=== PATIENT | female | born 1985 | race Caucasian/White ===

== ENCOUNTER 2018-05-24 22:23 | Emergency (ER) | payer SELFPAY ==
[2018-05-24 22:25] VITALS: BP 154/91; PULSE 98; RESP 18; TEMP 36.7; O2SAT 92; BMI 35.3
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
--- NOTE | 2018-05-24 22:42 | RAD_ITS ---
STUDY: X-RAY - LEFT TIBIA AND FIBULA REASON FOR EXAM: Female, 33 years old. Fall TECHNIQUE: 2 view(s) of the tibia and fibula were obtained. COMPARISON: None. FINDINGS: Probable focal bony infarct of the proximal tibial shaft. Normal visualized fibula. The soft tissue structures are unremarkable. RAD/Tibia & Fibula 2 Views IMPRESSION: No acute bony injury of the tibia and fibula. Electronically Signed: Jacoby Amin DO at 22:59 EDT Tel [phone], Service support ,
[2018-05-24] MEDS: Naproxen 500 MG Tablet PO (22:44)
--- NOTE | 2018-05-24 23:14 | ED.DEP ---
ED Disposition - Plan for ED Patient: Instructions: ED Abrasion, ED Contusion Lower Ext Referrals: NOT,DEFINED [NON-STAFF] -
== END 2018-05-24 23:40 | disposition home or self-care (01) ==
LOC: ED 22:58
PROVIDERS: Emergency Provider Emergency Medicine; Family Provider Internal Medicine; PCP Internal Medicine
DX: S80.12XA Contusion of left lower leg, initial encounter (principal); W10.9XXA Fall (on) (from) unspecified stairs and steps, initial encounter; S80.812A Abrasion, left lower leg, initial encounter; F41.9 Anxiety disorder, unspecified; Z79.899 Other long term (current) drug therapy; Z72.0 Tobacco use
CPT/HCPCS: 73590; 99283

== ENCOUNTER 2018-08-11 10:57 | Emergency (ER) | payer SELFPAY ==
[2018-08-11 10:58] VITALS: BP 149/93; PULSE 90; RESP 18; TEMP 36.6; O2SAT 98; BMI 35.3
[2018-08-11] MEDS: Orphenadrine 60 MG/2 ML Ampul IM (11:27)
[2018-08-11] MEDS: Ketorolac 30 MG/ML Syringe IM (11:27)
--- NOTE | 2018-08-11 11:42 | ED.VIS.GEN ---
History of Present Illness Chief Complaint: Back Informant: Patient Onset: Days Narrative: Patient presents to the ED with low back pain which she suspects is sciatic nerve pain. This began 2 days ago. She states that it is predominantly on the left side and radiates down her left leg. She does have a history of chronic pain for which she sees pain management for. She is prescribed gabapentin and 1 Vicodin in the morning and 1 Vicodin in the evening. She has been taking ibuprofen consistently for analgesia with little relief. 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 None of this is alleviating her pain. She denies any bowel/bladder incontinence or paresthesias. Past Medical History - Allergies and Home Meds Allergies/Adverse Reactions: Allergies No Known Allergies Allergy (Verified 08/11/18 10:57) Primary Care Physician: Brandon Mendez [Primary Care Provider] - Smoking Status: Never smoker Review of Systems General: Denies: Chills, Fever, Sweats Eyes: Denies: Visual changes - bilaterally, Diplopia ENT: Denies: Rhinorrhea, Sore throat Cardiovascular: Denies: Chest pain, Palpitations Respiratory: Denies: Dyspnea, Cough, Dyspnea on exertion Gastrointestinal: Denies: Abdominal pain, Nausea, Vomiting, Diarrhea, Melena, Hematochezia Genitourinary: Denies: Dysuria, Hematuria, Frequency Musculoskeletal: Reports: Back pain. Denies: Extremity Pain Skin: Denies: Rash, Wounds Neurological: Denies: Headache, Weakness, Numbness Physical Exam Vital Signs/Narrative: Vital Signs Temp Pulse Resp BP Pulse Ox 08/11/18 10:58 97.8 F 90 18 149/93 H 98 General: Well nourished, Well developed, No Acute Distress Head: Normocephalic, Atraumatic Eyes: Perrl, EOMI ENT: Moist mucous membranes, No rhinorrhea Neck: Supple, Nontender Cardiovascular: Regular rate, Regular rhythm, No murmurs Respiratory: No distress, CTA bilaterally, Chest nontender Abdomen: Soft, Nontender, Nondistended, Normal bowel sounds Back: Normal Inspection, - - Tenderness to palpation over left lumbar paraspinal muscles. Patient does have antalgic gait upon presentation, however did ambulate into the emergency department. Postive straight leg raise on the left. No midline tenderness. No signs/symptoms concerning for cauda equina or epidural abscess. No rash or skin changes. Extremities: Nontender, No edema Skin: Normal color, No rash Neurological: Alert, Oriented x3, Cranial nerves II-XII grossly intact, Normal Strength, Normal Sensation Psychological: Normal affect, Normal Mood Diagnostic/Tx/Re-eval - Medical Decision Making Patient presents to the ED with low back pain that radiates down her left leg. This does sound to be like sciatica in nature. She denies any injury. She has no focal neurological deficits. She does have a positive straight leg raise on the left. She was initially given IM Toradol and Norflex for symptomatic relief with only mild relief. Patient was educated that at this time, do not feel imaging is warranted. She was given IM morphine and a fentanyl patch for further analgesia. She is enrolled in pain management. She will follow-up with them. I did provide her with prescriptions for Naprosyn and Flexeril. She was educated on signs/symptoms to return to the ED. Provided discharge instructions. Patient agreeable to plan. Disposition: Home stable Impression:Lumbar back pain with sciatica on the left ED Disposition - Plan for ED Patient: Disposition: Home or Assisted Living Diagnosis: Sciatica Instructions: BACK PAIN w/ SCIATICA Prescriptions: cycloBENZAPRine HCl [Flexeril] 10 mg PO TID PRN #20 tab PRN Reason: Muscle Spasm Prescription Printed Naproxen [Naprosyn] 500 mg PO BID PRN PRN #30 tab PRN Reason: Pain Prescription Printed Referrals: Brandon Mendez [Primary Care Provider] -
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
[2018-08-11 12:36] VITALS: BP 132/81; PULSE 57; RESP 15
[2018-08-11] MEDS: Morphine 4 MG/ML Syringe IM (12:37)
[2018-08-11] MEDS: Ondansetron 4 MG/2 ML Vial IM (12:37)
[2018-08-11] MEDS: fentaNYL 25 MCG Patch TRANSDERM. (12:58)
== END 2018-08-11 13:02 | disposition home or self-care (01) ==
PROVIDERS: Emergency Provider Physician Assistant; Family Provider Internal Medicine; PCP Internal Medicine
DX: M54.42 Lumbago with sciatica, left side (principal)
CPT/HCPCS: 96372; 99282; J2405

== ENCOUNTER 2019-02-06 13:16 | Emergency (ER) | payer OTHER, SELFPAY ==
[2019-02-06 13:17] VITALS: BP 141/85; PULSE 89; RESP 18; TEMP 36.7; O2SAT 98; BMI 36.5
--- NOTE | 2019-02-06 13:37 | ED.DCSUM_ITS ---
History of Present Illness Chief Complaint: Flank Pain Informant: Patient Onset: Yesterday Context: Sudden Onset Timing: Intermittent - intermittent initially now constant Quality: Pain Location: Left flank Current Severity: Moderate Maximum Severity: Severe Worsened by: Nothing Relieved by: Nothing Associated Symptoms: Nausea and dysuria Narrative: Is a 34-year-old female who presents with dysuria and left flank pain. Left flank pain started last evening and was intermittent. Now flank pain is constant. She has no history of renal or ureterolithiasis. There is a paternal uncle with history of ureterolithiasis. She has a Mirena in place and does not menstruate. She denies prior symptoms. Prior similar symptoms: No Recent Illness/Hospitalization: No - Past Medical History (1) No significant past medical history Status: Acute Past Medical History - Allergies and Home Meds Allergies/Adverse Reactions: Allergies No Known Allergies Allergy (Verified 02/06/19 13:17) Primary Care Physician: Chantal Carter [Primary Care Provider] - Surgical History: no surgical history Lives: Spouse/ Significant Other Smoking Status: Never smoker Drugs: None Review of Systems General: Denies: Chills, Fever, Malaise, Sweats Eyes: Denies: Visual changes - bilaterally, Blurred Vision - bilaterally ENT: Denies: Rhinorrhea, Sore throat Cardiovascular: Denies: Chest pain, Palpitations Respiratory: Denies: Dyspnea, Cough, Sputum, Dyspnea on exertion Gastrointestinal: Reports: Nausea. Denies: Abdominal pain, Vomiting, Diarrhea, Constipation, Melena, Hematochezia Genitourinary: Reports: Dysuria, Frequency. Denies: Hematuria Musculoskeletal: Reports: Back pain. Denies: Myalgias, Arthralgias, Neck pain, Swelling, Extremity Pain Skin: Denies: Rash, Wounds Neurological: Denies: Headache, Weakness, Numbness Hematologic: Denies: Easy bruising, Easy bleeding Physical Exam Vital Signs/Narrative: Vital Signs Temp Pulse Resp BP Pulse Ox 02/06/19 13:17 98.0 F 89 18 141/85 H 98 Inital Vital Signs reviewed: Yes General: Well nourished, Well developed, Obese, No Acute Distress Head: Normocephalic, Atraumatic Eyes: Perrl, EOMI. Negative for: Pale conjunctiva, Scleral icterus ENT: Moist mucous membranes, No rhinorrhea Neck: Supple, Nontender Cardiovascular: Regular rate, Regular rhythm, No murmurs, Normal S1, Normal S2 Respiratory: No distress, CTA bilaterally, Chest nontender Abdomen: Soft, Nontender, Nondistended, Normal bowel sounds Back: Nontender, Normal Inspection, CVA tenderness. Negative for: Spinal tenderness Extremities: Nontender, No edema Skin: Normal color, No rash Neurological: Alert, Oriented x3, Cranial nerves II-XII grossly intact, Normal Strength, Normal Sensation Psychological: Normal affect, Normal Mood Diagnostic/Tx/Re-eval Impressions Abdomen/Pelvis CT 02/06/19 13:41 IMPRESSION: 1. No hydronephrosis or urinary tract calcifications. 2. 5.4 cm left adnexal cyst, simple. No pelvic free fluid or inflammation. 3. Old right obturator ring fracture. Electronically Signed: Loki Boswell MD ([place]) at 14:33 EST , Service support , 02/06/19 13:41 Abdomen/Pelvis without Cont [CT] Stat Laboratory Results 02/06/19 02/06/19 13:35 13:35 WBC 13.1 H RBC 4.63 Hgb 13.0 Hct 40.5 MCV 87.5 MCH 28.1 MCHC 32.1 RDW Std Deviation 45.0 H RDW Coeff of Ellie 14.2 Plt Count 293 MPV 9.3 Immature Gran % (Auto) 0.300 Neut % (Auto) 78.7 H Lymph % (Auto) 14.9 L Robertson % (Auto) 4.8 Eos % (Auto) 1.1 Baso % (Auto) 0.2 Absolute Neuts (auto) 10.3 H Absolute Lymphs (auto) 1.95 Nucleated RBC % 0 Urine Color Yellow Urine Clarity Clear Urine pH 7.0 Ur Specific [place] 1.010 Urine Protein Negative Urine Glucose (UA) Normal Urine Ketones 5 H Urine Occult Blood Negative Urine Nitrite Negative Urine Bilirubin Negative Urine Urobilinogen Normal Ur Leukocyte Esterase 100 H Urine RBC 0 SEEN Urine WBC 5-10 SEEN Ur Squamous Epith Cells 5-10 SEEN Urine Bacteria 2+ Urine Mucus 0 SEEN Urine is suggestive of infection. Will treat with antibiotics. - Medical Decision Making Diagnosis includes ureteral calculus, pyelonephritis versus other cause. Will obtain UA, blood work and CT of the abdomen pelvis without contrast. ED Disposition - Plan for ED Patient: Disposition: Home or Assisted Living Diagnosis: Pyelonephritis, Left ovarian cyst Instructions: PYELONEPHRITIS, Female (Adult), Ovarian Cyst Prescriptions: Smz/Tmp Ds [Bactrim Ds] 1 tab PO BID #20 tab Prescription Printed Hydrocodone Bitart/Apap 5-325 [[place] 5MG-325MG] 1 tab PO Q6H PRN PRN 3 Days #10 tab PRN Reason: Pain Prescription Printed Referrals: Chantal Carter [Primary Care Provider] - 3-5 Days
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
[2019-02-06 13:46] LABS: Mucous, Urine 0 SEEN /hpf (<or=2+); Red Blood Cells-Urine 0 SEEN /hpf (0-5)
[2019-02-06 13:49] LABS: Absolute Lymphocyte Count 1.95 X10^3/uL (0.83-4.51); Absolute Neutrophil Count 10.3 X10^3/uL (2.0-7.7); Basophil# 0.03 X10^3/uL; Basophil% 0.2 % (0-1); Eosinophil# 0.14 X10^3/uL; Eosinophils% 1.1 % (0-5); Hematocrit 40.5 % (37-47); Lymphocyte # 1.95 X10^3/ul (4.0); Lymphocyte % 14.9 % (19-41); Mean Corp Hgb Conc 32.1 g/dL (32-36); Mean Corpuscular Hgb 28.1 pg (27.0-32.0); Mean Corpuscular Volume 87.5 fL (81-99); Mean Platelet Vol. 9.3 fl (6.2-12.0); Monocyte# 0.63 X10^3/uL; Monocyte% 4.8 % (0-10); NRBC Flagged by Analyzer 0 % (0-5); Neutrophil % 78.7 % (47-70); Platelet Count 293 K/mm3 (150-450); RBC Distribution Width CV 14.2 % (11.6-14.6); Red Blood Count 4.63 M/mm3 (4.2-5.4); White Blood Count 13.1 K/mm3 (4.4-11.0)
[2019-02-06] MEDS: Ketorolac 30 MG/ML Syringe 15 MG IV (13:49)
[2019-02-06] MEDS: Ondansetron 4 MG/2 ML Vial IV (13:49)
[2019-02-06 13:55] LABS: Color, Urine Yellow (Yellow); Glucose, Dipstick Normal (Normal); Ketone-Dipstick 5 mg/dl (Negative); Leukocyte Esterase-Dipstick 100 /ul (Negative); Nitrite-Dipstick Negative (Negative); Occult Blood-Urine Negative /ul (Negative); Protein-Dipstick Negative (Negative); Urine Bilirubin Dipstick Negative (Negative); Urine Clarity Clear (Clear); Urine Urobilinogen Normal (Normal)
[2019-02-06 14:02] VITALS: TEMP 36.7
[2019-02-06 14:09] LABS: Bacteria 2+ /hpf (None Seen); Squamous Epithelial Cells - UA 5-10 SEEN /hpf (5-10); White Blood Cells 5-10 SEEN /hpf (0-5)
[2019-02-06] MEDS: 0.9% Normal Saline 1,000 ML 250 ML IV (14:10)
[2019-02-06] MEDS: Morphine 4 MG/ML Syringe IV (15:03)
[2019-02-06] MEDS: Ceftriaxone 1 GM/50 ML BAG IV (15:37)
[2019-02-06 16:29] VITALS: PULSE 92; RESP 17; TEMP 36.8; O2SAT 98
== END 2019-02-06 16:30 | disposition home or self-care (01) ==
PROVIDERS: Emergency Provider Emergency Medicine; Family Provider Family Medicine; PCP Family Medicine
DX: N12 Tubulo-interstitial nephritis, not specified as acute or chronic (principal); N83.202 Unspecified ovarian cyst, left side; E66.9 Obesity, unspecified
CPT/HCPCS: 74176; 81001; 85025; 87086; 87088; 96361; 96365; 96375; 99283; J7030; A4216; J2405

== ENCOUNTER 2019-06-10 08:44 | Emergency (ER) | payer OTHER, SELFPAY ==
[2019-06-10 08:45] VITALS: BP 176/109; PULSE 96; RESP 18; TEMP 36.3; O2SAT 97; BMI 35.9
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
[2019-06-10] MEDS: Cephalexin 250 MG Capsule 500 MG PO (09:15)
== END 2019-06-10 09:36 | disposition home or self-care (01) ==
LOC: ED 09:21
PROVIDERS: Emergency Provider Emergency Medicine; PCP Family Medicine
DX: T22.111A Burn of first degree of right forearm, initial encounter (principal); L03.113 Cellulitis of right upper limb; X19.XXXA Contact with other heat and hot substances, initial encounter; Y93.9 Activity, unspecified; Y99.9 Unspecified external cause status; Z79.899 Other long term (current) drug therapy
CPT/HCPCS: 99283

== ENCOUNTER 2019-06-11 19:41 | Emergency (ER) | payer OTHER, SELFPAY ==
[2019-06-10 08:45] VITALS: BMI 35.9
[2019-06-11 19:42] VITALS: BP 158/104; PULSE 93; PULSE 97; RESP 17; RESP 18; TEMP 37.1; O2SAT 98; BMI 36.6
--- NOTE | 2019-06-11 19:50 | ED.RN ---
CALLED FOR EKG PER RN REQUEST, NO OLD EKGS IN MUSE
--- NOTE | 2019-06-11 20:34 | EKG12_ITS ---
Test Reason : CHEST PRESSURE Blood Pressure : / mmHG Vent. Rate : 089 BPM Atrial Rate : 089 BPM P-R Int : 172 ms QRS Dur : 086 ms QT Int : 380 ms P-R-T Axes : 022 003 004 degrees QTc Int : 462 ms Normal sinus rhythm Normal ECG Confirmed by VICKIE GILMORE ([id number]), photograph editor DEEP FAIRBANKS ([id number]) on 06/13/2019 3:03:44 PM Referred By: Confirmed By:VICKIE GILMORE
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
[2019-06-11 20:58] LABS: Absolute Lymphocyte Count 2.48 X10^3/uL (0.83-4.51); Basophil# 0.03 X10^3/uL; Basophil% 0.2 % (0-1); Eosinophil# 0.22 X10^3/uL; Eosinophils% 1.8 % (0-5); Hemoglobin 12.1 g/dL (12.0-15.0); Lymphocyte # 2.48 X10^3/ul (4.0); Lymphocyte % 20.1 % (19-41); Mean Corp Hgb Conc 31.8 g/dL (32-36); Mean Corpuscular Hgb 28.3 pg (27.0-32.0); Mean Platelet Vol. 9.5 fl (6.2-12.0); Monocyte# 0.59 X10^3/uL; Monocyte% 4.8 % (0-10); NRBC Flagged by Analyzer 0 % (0-5); Neutrophil # 8.95 X10^3/uL (2.7-7.7); Neutrophil % 72.6 % (47-70); Platelet Count 280 K/mm3 (150-450); RBC Distribution Width CV 14.1 % (11.6-14.6); RBC Distribution Width SD 45.5 fl (35.1-43.9); Red Blood Count 4.27 M/mm3 (4.2-5.4); White Blood Count 12.3 K/mm3 (4.4-11.0)
[2019-06-11 21:19] LABS: Anion Gap 4 (5-15); BUN 15 mg/dL (7-18); BUN/Creat Ratio 18.5 RATIO (10-20); Chloride 108 mmol/L (98-107); Creatinine, Serum 0.81 mg/dL (0.55-1.02); EST Glomerular Filtration Rate 86 mL/min (>60); Est Glom Filt Rate - Afr Amer 104 mL/min (>60); Estimated Creatinine Clearance 92.48 ml/min; Glucose 131 mg/dL (74-106); Potassium 3.5 mmol/L (3.5-5.1); Sodium Level 140 mmol/L (136-145); Thyroid Stim Hormone (TSH) 0.77 uIU/mL (0.358-3.74)
[2019-06-11 21:52] VITALS: BP 126/97; PULSE 69; RESP 15; O2SAT 95
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
[2019-06-11 23:17] VITALS: BP 101/72; PULSE 71; RESP 12; O2SAT 99
== END 2019-06-11 23:26 | disposition home or self-care (01) ==
PROVIDERS: Emergency Provider Emergency Medicine; PCP Family Medicine
DX: R07.89 Other chest pain (principal); F41.9 Anxiety disorder, unspecified; R06.02 Shortness of breath; G89.29 Other chronic pain; R20.0 Anesthesia of skin; F32.9 Major depressive disorder, single episode, unspecified; E66.9 Obesity, unspecified; Z79.899 Other long term (current) drug therapy; Z87.891 Personal history of nicotine dependence
CPT/HCPCS: 71046; 80048; 84443; 84484; 85025; 93005; 99285; A4216

== ENCOUNTER → 2019-07-03 10:53 | Outpatient (CLI) | payer OTHER, SELFPAY ==
[2019-06-11 19:42] VITALS: BMI 36.6
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
== END ==
PROVIDERS: PCP Nurse Practitioner; Referring Provider Nurse Practitioner; Visit Provider Nurse Practitioner
DX: M54.5 Low back pain (principal)
CPT/HCPCS: 72148

== ENCOUNTER → 2019-09-17 14:07 | Outpatient (CLI) | payer OTHER, SELFPAY ==
--- NOTE | 2019-09-17 14:07 | RAD_ITS ---
STUDY: X-RAY - LUMBAR SPINE REASON FOR EXAM: Female, 34 years old. LBP TECHNIQUE: 4 view(s) of the lumbar spine were obtained. COMPARISON: None FINDINGS: Normal lumbar lordosis. There is a minimal dextroscoliosis of the lumbar spine. There is a normal alignment of the vertebrae. Normal vertebral bodies and endplates. Mild degree of disc space narrowing at the L4-L5 level. The soft tissue structures are unremarkable. RAD/L/S Spine Min 4 Views IMPRESSION: Mild degree of disc space narrowing at L5 level. Electronically Signed: Mike Linares, at 14:49 EDT , Service support ,
--- NOTE | 2019-09-17 15:44 | RAD_ITS ---
STUDY: X-RAY - LEFT FOOT CLINICAL: Female, 34 years old. PAIN LEFT FOOT LATERALLY DOWN INTO TOES FOR ABOUT 1 1/2 WEEKS. PATIENT STATES SHE FEELS LIKE HER WALKING GATE IS DIFFERENT AFTER HER BACK SURGERY. TECHNIQUE: 3 view(s) of the foot. COMPARISON: None. FINDINGS: Normal talus, calcaneus, and tarsal bones. Normal visualized subtalar, talonavicular, calcaneocuboid, tarsal and tarsometatarsal articulations. Normal metatarsi. Normal metatarsophalangeal joint of the great toe. Normal tibial and fibular sesamoid bones. Normal interphalangeal joint of the great toe. Normal phalanges of the great toe. Normal second through fifth metatarsophalangeal joints. Normal interphalangeal joints and phalanges of the lesser toes. The soft tissue structures are unremarkable. RAD/Foot min 3 Views IMPRESSION: Normal x-ray examination of the foot. Electronically Signed: Paul Mayes MD at 17:15 EDT , Service support ,
== END ==
PROVIDERS: PCP Nurse Practitioner; Referring Provider Orthopaedic Surgery; Visit Provider Orthopaedic Surgery
DX: M54.5 Low back pain (principal); M79.672 Pain in left foot
CPT/HCPCS: 72110; 73630

== ENCOUNTER 2019-10-06 19:10 | Emergency (ER) | payer OTHER, SELFPAY ==
[2019-09-17 14:30] VITALS: BMI 36.6
[2019-10-06 19:11] VITALS: BP 144/114; PULSE 83; RESP 17; TEMP 36.2; O2SAT 99; BMI 35.3
[2019-10-06] MEDS: dexAMETHasone 10 MG/ML Vial PO.IVFORM (20:51)
[2019-10-06] MEDS: Acetaminophen 325 MG Tablet 1000 MG PO (20:52)
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
[2019-10-06 21:52] VITALS: BP 156/86; PULSE 75; O2SAT 98
[2019-10-06] MEDS: Ketorolac 15 MG/ML Vial IM (22:08)
== END 2019-10-06 22:31 | disposition home or self-care (01) ==
PROVIDERS: Emergency Provider Emergency Medicine; PCP Nurse Practitioner
DX: J02.9 Acute pharyngitis, unspecified (principal); E66.9 Obesity, unspecified
CPT/HCPCS: 87880; 96372; 99283

== ENCOUNTER 2019-10-18 15:52 | Emergency (ER) | payer OTHER, SELFPAY ==
[2019-10-18 15:53] VITALS: BP 179/113; PULSE 96; RESP 16; TEMP 36.4; O2SAT 98; BMI 34.7
--- NOTE | 2019-10-18 16:07 | EKG12_ITS ---
Test Reason : HTN Blood Pressure : / mmHG Vent. Rate : 092 BPM Atrial Rate : 092 BPM P-R Int : 172 ms QRS Dur : 076 ms QT Int : 366 ms P-R-T Axes : 047 004 003 degrees QTc Int : 452 ms Normal sinus rhythm Normal ECG Confirmed by YOSHI ROLLE, RADHA ([id number]), dictionary editor DEEP FAIRBANKS ([id number]) on 10/21/2019 1:17:15 PM Referred By: ISAAC Confirmed By:RADHA BELLE MD
[2019-10-18] MEDS: LORazepam 1 MG Tablet PO (16:17)
--- NOTE | 2019-10-18 16:25 | RAD_ITS ---
STUDY: X-RAY CHEST REASON FOR EXAM: Female, 34 years old. HTN, chest tightness TECHNIQUE: Single AP portable view of the chest. COMPARISON: 06/11/2019. FINDINGS: The lungs are clear and expanded. There is no demonstrated pleural abnormality. Normal size heart. Normal mediastinum and chris. Normal visualized pulmonary arteries. Normal visualized aortic arch and descending thoracic aorta. Normal visualized thoracic spine. Normal visualized ribs, clavicles, and shoulders. There is no demonstrated abnormality of the visualized soft tissue structures of the upper abdomen. RAD/Chest 1 View (Portable) IMPRESSION: Normal x-ray examination of the chest. Electronically Signed: Breanna Rosas MD at 16:47 EDT Tel , Service support ,
[2019-10-18 16:41] LABS: Absolute Lymphocyte Count 2.74 X10^3/uL (0.83-4.51); Absolute Neutrophil Count 9.2 X10^3/uL (2.0-7.7); Basophil# 0.03 X10^3/uL; Basophil% 0.2 % (0-1); Eosinophil# 0.16 X10^3/uL; Eosinophils% 1.2 % (0-5); Hematocrit 39.5 % (37-47); Hemoglobin 12.9 g/dL (12.0-15.0); Lymphocyte # 2.74 X10^3/ul (4.0); Lymphocyte % 20.9 % (19-41); Mean Corp Hgb Conc 32.7 g/dL (32-36); Mean Corpuscular Hgb 30.8 pg (27.0-32.0); Mean Corpuscular Volume 94.3 fL (81-99); Monocyte# 0.82 X10^3/uL; Monocyte% 6.2 % (0-10); NRBC Flagged by Analyzer 0 % (0-5); Neutrophil # 9.24 X10^3/uL (2.7-7.7); Neutrophil % 70.4 % (47-70); Platelet Count 281 K/mm3 (150-450); RBC Distribution Width SD 51.8 fl (35.1-43.9); Red Blood Count 4.19 M/mm3 (4.2-5.4); White Blood Count 13.1 K/mm3 (4.4-11.0)
[2019-10-18 16:51] LABS: Internal QC Validated? YES +Cl - CLEAR BKGD; Pregnancy, Serum, hCG Quali. NEGATIVE Negative
[2019-10-18 16:57] LABS: Anion Gap 5 (5-15); BUN 13 mg/dL (7-18); BUN/Creat Ratio 14.5 RATIO (10-20); Calcium,Total 8.8 mg/dL (8.5-10.1); Chloride 105 mmol/L (98-107); Creatinine, Serum 0.89 mg/dL (0.55-1.02); EST Glomerular Filtration Rate 77 mL/min (>60); Est Glom Filt Rate - Afr Amer 93 mL/min (>60); Estimated Creatinine Clearance 84.17 ml/min; Glucose 107 mg/dL (74-106); Potassium 3.6 mmol/L (3.5-5.1); Sodium Level 139 mmol/L (136-145)
--- NOTE | 2019-10-18 17:13 | ED.VIS.GEN ---
History of Present Illness Informant: Patient Onset: Yesterday Context: Gradual Onset Timing: Continuous Quality: chest tightness Location: chest Current Severity: Severe Maximum Severity: Severe Worsened by: nothing Relieved by: nothing Associated Symptoms: anxiety, elevated blood pressure Narrative: 34-year-old female with a history of both hypertension and anxiety presents to the emergency department secondary to chest pain and elevated blood pressure. Patient has been having the symptoms since yesterday she saw her family doctor yesterday who wrote her a prescription for amlodipine. 5 mg daily. Patient states that she has had a lot of things going on at work that have been making her anxious. She felt like she was having an anxiety attack today secondary to the stresses at work but then developed some chest tightness she called her doctor's office who directed her to the emergency department. Patient denies any shortness of breath she feels somewhat lightheaded she is not dizzy no coughing no fever no hemoptysis no leg pain or swelling she is not diaphoretic no nausea or vomiting. Denies recent travel or surgery history of DVT or PE use of oral control pills or hemoptysis. She is currently on prednisone taper secondary to strep throat. She states that her family doctor told her that may be elevating her blood pressure. She is also being weaned down off of her 3 times daily Baxter over the last several weeks she is currently on 1 daily and her doctor told her that may be contributing to her symptoms as well. She has no family history of heart disease at a young age Prior similar symptoms: Yes Recent Illness/Hospitalization: No <Tyler Rodney - Last Filed: 10/18/19 17:13> <Brendon Rojas - Last Filed: 10/18/19 22:25> Chief Complaint: Hypertension Past Medical History Prior records reviewed: Yes Past Medical History: - - HTN, anxiety, chronic pain Surgical History: no surgical history Lives: With Family Smoking Status: Never smoker Alcohol: None Drugs: None <Tyler Rodney - Last Filed: 10/18/19 17:13> <Brendon Rojas - Last Filed: 10/18/19 22:25> - Allergies and Home Meds Allergies/Adverse Reactions: Allergies No Known Allergies Allergy (Verified 10/18/19 15:53) Primary Care Physician: Ann Marie Jeff FAMILY PRACTICE DOCTOR, FAMILY PRACTICE DOCTOR-C [Primary Care Provider] - 3-5 Days Review of Systems All systems negative except as indicated General: Denies: Chills, Fever, Sweats Eyes: Denies: Visual changes - bilaterally, Diplopia ENT: Denies: Rhinorrhea, Sore throat Cardiovascular: Reports: Chest pain, Heart racing. Denies: Palpitations Respiratory: Denies: Dyspnea, Cough, Dyspnea on exertion Gastrointestinal: Denies: Abdominal pain, Nausea, Vomiting, Diarrhea, Melena, Hematochezia Genitourinary: Denies: Dysuria, Hematuria, Frequency Musculoskeletal: Denies: Back pain, Swelling, Extremity Pain Skin: Denies: Rash, Wounds Neurological: Denies: Headache, Weakness, Parasthesia, Numbness <Tyler Rodney - Last Filed: 10/18/19 17:13> Physical Exam Vital Signs/Narrative: Vital Signs Temp Pulse Resp BP Pulse Ox 10/18/19 15:53 97.5 F L 96 16 179/113 H 98 Inital Vital Signs reviewed: Yes General: Well nourished, Well developed, No Acute Distress Head: Normocephalic, Atraumatic Eyes: Perrl, EOMI ENT: Moist mucous membranes, No rhinorrhea Neck: Supple, Nontender Cardiovascular: Regular rate, Regular rhythm, No murmurs Respiratory: No distress, CTA bilaterally, Chest nontender Abdomen: Soft, Nontender, Nondistended, Normal bowel sounds Back: Nontender, Normal Inspection Extremities: Nontender, No edema. Negative for: Tenderness, Edema, Calf Tenderness Skin: Normal color, No rash Neurological: Alert, Oriented x3, Cranial nerves II-XII grossly intact, Normal Strength, Normal Sensation Psychological: Tearful, Agitated <Tyler Rodney - Last Filed: 10/18/19 17:13> Diagnostic/Tx/Re-eval Chest X-Ray - ED: 1 View, Read by ED Physician, Read by Radiologist, No Acute Disease - Rhythm Strip Rhythm Strip: Sinus Rhythm Rate: 90 Ectopy: None - EKG Initial EKG Interpretation: Sinus Rhythm, No Acute Injury Pattern Prior: Unchanged - Medical Decision Making EKG was sinus rhythm no signs of acute ischemia. Patient is PERC negative. Patient was given Ativan for anxiety. CBC BMP and troponin remarkable only for a mildly elevated white blood cell count which is secondary to the prednisone. Chest x-ray unremarkable. Heart score is 1 patient is no longer having chest pain she was given the Ativan which she states improved her symptoms. Her blood pressure on my repeat exam is 139/100. She is resting comfortably. I do not feel she requires a second troponin or admission. I will give her a prescription for Vistaril she will continue her amlodipine and follow-up with her doctor <Tyler Rodney - Last Filed: 10/18/19 17:13> - Medical Decision Making And with chest tightness hypertension and anxiety. Negative cardiac work-up. PERC negative. Patient is improved. I reviewed the physician editorial assistant's note and agree with the documented findings and plan of care. Brendon Rojas DO, MS <Brendon Rojas - Last Filed: 10/18/19 22:25> ED Disposition <Tyler Rodney - Last Filed: 10/18/19 17:13> <Brendon Rojas - Last Filed: 10/18/19 22:25> - Plan for ED Patient: Disposition: Home or Assisted Living Diagnosis: Chest pain, Anxiety, Hypertension Instructions: ED Stress React Prescriptions: hydrOXYzine pamoate capsule [Vistaril] 50 mg PO TID PRN PRN #30 cap PRN Reason: Anxiety Transmission Status: Received by [facility] Referrals: Ann Marie Jeff NP, FAMILY PRACTICE DOCTOR-C [Primary Care Provider] - 3-5 Days
[2019-10-18 17:23] VITALS: BP 157/97; PULSE 84; RESP 16; O2SAT 97
[2019-10-18 17:25] VITALS: BP 157/97; PULSE 84; RESP 16; O2SAT 97
== END 2019-10-18 17:32 | disposition home or self-care (01) ==
PROVIDERS: Emergency Provider Physician Assistant Medical; PCP Nurse Practitioner
DX: R07.89 Other chest pain (principal); I10 Essential (primary) hypertension; F41.9 Anxiety disorder, unspecified; G89.29 Other chronic pain; Z79.899 Other long term (current) drug therapy
CPT/HCPCS: 71045; 80048; 84484; 84703; 85025; 93005; 99285; A4216

== ENCOUNTER → 2019-12-11 17:52 | Outpatient (CLI) | payer OTHER, SELFPAY ==
[2019-12-11 19:37] LABS: Amphetamine Urine VISTA NEGATIVE (<1000 ng/mL); Barbiturate Urine VISTA NEGATIVE (< 200 ng/mL); Benzodiazepine Urine VISTA NEGATIVE (< 200 ng/mL); Cocaine Urine VISTA NEGATIVE (< 300 ng/mL); Ecstacy Urine VISTA NEGATIVE (< 500 ng/mL); Methadone Urine VISTA NEGATIVE (< 300 ng/mL); PCP Urine VISTA NEGATIVE (< 25 ng/mL); THC Urine VISTA NEGATIVE (< 50 ng/mL); Vista UDS pH Range 5
[2019-12-11 19:46] LABS: BUP Internal Control LINE = VALID (VALID); Buprenorphine Drug Screen Positive (<10 ng/mL)
== END ==
PROVIDERS: PCP Nurse Practitioner; Visit Provider Anesthesiology Pain Medicine
DX: F11.20 Opioid dependence, uncomplicated (principal)
CPT/HCPCS: 80307

== ENCOUNTER → 2019-12-25 17:25 | Outpatient (CLI) | payer OTHER, SELFPAY ==
[2019-12-25 19:16] LABS: Amphetamine Urine VISTA NEGATIVE (<1000 ng/mL); Barbiturate Urine VISTA NEGATIVE (< 200 ng/mL); Benzodiazepine Urine VISTA NEGATIVE (< 200 ng/mL); Cocaine Urine VISTA NEGATIVE (< 300 ng/mL); Ecstacy Urine VISTA NEGATIVE (< 500 ng/mL); Methadone Urine VISTA NEGATIVE (< 300 ng/mL); PCP Urine VISTA NEGATIVE (< 25 ng/mL); THC Urine VISTA NEGATIVE (< 50 ng/mL); Vista UDS pH Range 7
== END ==
PROVIDERS: Referring Provider Anesthesiology Pain Medicine; Visit Provider Anesthesiology Pain Medicine
DX: F11.20 Opioid dependence, uncomplicated (principal)
CPT/HCPCS: 80307

== ENCOUNTER → 2020-01-08 | Outpatient (CLI) | payer OTHER, SELFPAY ==
[2020-01-08 17:44] LABS: Amphetamine Urine VISTA NEGATIVE (<1000 ng/mL); Barbiturate Urine VISTA NEGATIVE (< 200 ng/mL); Benzodiazepine Urine VISTA NEGATIVE (< 200 ng/mL); Cocaine Urine VISTA NEGATIVE (< 300 ng/mL); Ecstacy Urine VISTA NEGATIVE (< 500 ng/mL); Methadone Urine VISTA NEGATIVE (< 300 ng/mL); PCP Urine VISTA NEGATIVE (< 25 ng/mL); THC Urine VISTA NEGATIVE (< 50 ng/mL); Vista UDS pH Range 6
== END | disposition home or self-care (01) ==
PROVIDERS: Referring Provider Anesthesiology Pain Medicine; Visit Provider Anesthesiology Pain Medicine
DX: F11.20 Opioid dependence, uncomplicated (principal)
CPT/HCPCS: 80307

== ENCOUNTER → 2020-01-23 16:35 | Outpatient (CLI) | payer OTHER, SELFPAY ==
[2020-01-23 18:34] LABS: Amphetamine Urine VISTA NEGATIVE (<1000 ng/mL); Barbiturate Urine VISTA NEGATIVE (< 200 ng/mL); Benzodiazepine Urine VISTA NEGATIVE (< 200 ng/mL); Cocaine Urine VISTA NEGATIVE (< 300 ng/mL); Ecstacy Urine VISTA NEGATIVE (< 500 ng/mL); Methadone Urine VISTA NEGATIVE (< 300 ng/mL); PCP Urine VISTA NEGATIVE (< 25 ng/mL); THC Urine VISTA NEGATIVE (< 50 ng/mL); Vista UDS pH Range 7
== END ==
PROVIDERS: Referring Provider Anesthesiology Pain Medicine; Visit Provider Anesthesiology Pain Medicine
DX: F11.20 Opioid dependence, uncomplicated (principal)
CPT/HCPCS: 80307

== ENCOUNTER → 2020-02-05 17:00 | Outpatient (CLI) | payer OTHER, SELFPAY ==
[2020-02-05 17:50] LABS: Amphetamine Urine VISTA NEGATIVE (<1000 ng/mL); Barbiturate Urine VISTA NEGATIVE (< 200 ng/mL); Benzodiazepine Urine VISTA NEGATIVE (< 200 ng/mL); Cocaine Urine VISTA NEGATIVE (< 300 ng/mL); Ecstacy Urine VISTA NEGATIVE (< 500 ng/mL); Methadone Urine VISTA NEGATIVE (< 300 ng/mL); PCP Urine VISTA NEGATIVE (< 25 ng/mL); THC Urine VISTA NEGATIVE (< 50 ng/mL); Vista UDS pH Range 7
== END ==
PROVIDERS: Visit Provider Anesthesiology Pain Medicine
DX: F11.20 Opioid dependence, uncomplicated (principal)
CPT/HCPCS: 80307

== ENCOUNTER → 2020-02-19 | Outpatient (CLI) | payer OTHER, SELFPAY ==
[2020-02-19 17:41] LABS: Amphetamine Urine VISTA NEGATIVE (<1000 ng/mL); Barbiturate Urine VISTA NEGATIVE (< 200 ng/mL); Benzodiazepine Urine VISTA NEGATIVE (< 200 ng/mL); Cocaine Urine VISTA NEGATIVE (< 300 ng/mL); Ecstacy Urine VISTA NEGATIVE (< 500 ng/mL); Methadone Urine VISTA NEGATIVE (< 300 ng/mL); PCP Urine VISTA NEGATIVE (< 25 ng/mL); THC Urine VISTA NEGATIVE (< 50 ng/mL); Vista UDS pH Range 6
== END | disposition home or self-care (01) ==
PROVIDERS: Referring Provider Anesthesiology Pain Medicine; Visit Provider Anesthesiology Pain Medicine
DX: F11.20 Opioid dependence, uncomplicated (principal)
CPT/HCPCS: 80307

== ENCOUNTER → 2020-03-04 | Outpatient (CLI) | payer OTHER, SELFPAY ==
[2020-03-05 08:27] LABS: Amphetamine Urine VISTA NEGATIVE (<1000 ng/mL); Barbiturate Urine VISTA NEGATIVE (< 200 ng/mL); Benzodiazepine Urine VISTA NEGATIVE (< 200 ng/mL); Cocaine Urine VISTA NEGATIVE (< 300 ng/mL); Ecstacy Urine VISTA NEGATIVE (< 500 ng/mL); Methadone Urine VISTA NEGATIVE (< 300 ng/mL); PCP Urine VISTA NEGATIVE (< 25 ng/mL); THC Urine VISTA NEGATIVE (< 50 ng/mL); Vista UDS pH Range 6
== END | disposition home or self-care (01) ==
LOC: LAB 03-05 07:08 → LABSPEC 03-05 07:10
PROVIDERS: Referring Provider Anesthesiology Pain Medicine; Visit Provider Anesthesiology Pain Medicine
DX: F11.20 Opioid dependence, uncomplicated (principal)
CPT/HCPCS: 80307

== ENCOUNTER → 2020-03-19 | Outpatient (CLI) | payer OTHER, SELFPAY ==
[2020-03-19 18:36] LABS: Amphetamine Urine VISTA NEGATIVE (<1000 ng/mL); Barbiturate Urine VISTA NEGATIVE (< 200 ng/mL); Benzodiazepine Urine VISTA NEGATIVE (< 200 ng/mL); Cocaine Urine VISTA NEGATIVE (< 300 ng/mL); Ecstacy Urine VISTA NEGATIVE (< 500 ng/mL); Methadone Urine VISTA NEGATIVE (< 300 ng/mL); PCP Urine VISTA NEGATIVE (< 25 ng/mL); THC Urine VISTA NEGATIVE (< 50 ng/mL); Vista UDS pH Range 5
== END | disposition home or self-care (01) ==
PROVIDERS: Referring Provider Anesthesiology Pain Medicine; Visit Provider Anesthesiology Pain Medicine
DX: F11.20 Opioid dependence, uncomplicated (principal)
CPT/HCPCS: 80307

== ENCOUNTER → 2020-04-16 16:49 | Outpatient (CLI) | payer OTHER, SELFPAY ==
[2020-04-16 18:01] LABS: Amphetamine Urine VISTA NEGATIVE (<1000 ng/mL); Barbiturate Urine VISTA NEGATIVE (< 200 ng/mL); Benzodiazepine Urine VISTA NEGATIVE (< 200 ng/mL); Cocaine Urine VISTA NEGATIVE (< 300 ng/mL); Ecstacy Urine VISTA NEGATIVE (< 500 ng/mL); Methadone Urine VISTA NEGATIVE (< 300 ng/mL); PCP Urine VISTA NEGATIVE (< 25 ng/mL); THC Urine VISTA NEGATIVE (< 50 ng/mL); Vista UDS pH Range 5
== END ==
PROVIDERS: Visit Provider Anesthesiology Pain Medicine
DX: F11.20 Opioid dependence, uncomplicated (principal)
CPT/HCPCS: 80307

== ENCOUNTER 2020-04-30 21:14 | Emergency (ER) | payer OTHER, SELFPAY ==
[2020-04-30 21:16] VITALS: BP 177/79; PULSE 114; RESP 16; TEMP 36.3; O2SAT 98; BMI 37.1
--- NOTE | 2020-04-30 21:44 | EKG12_ITS ---
Test Reason : SUBSTANCE ABUSE Blood Pressure : / mmHG Vent. Rate : 083 BPM Atrial Rate : 083 BPM P-R Int : 188 ms QRS Dur : 092 ms QT Int : 392 ms P-R-T Axes : 022 003 -01 degrees QTc Int : 460 ms Normal sinus rhythm Nonspecific T wave abnormality Prolonged QT Abnormal ECG Confirmed by LUIS M ROLLE, KACY ([id number]), metropolitan editor JESSI ALEJANDRO ([id number]) on 05/04/2020 1:26:22 PM Referred By: ABBY Confirmed By:LION ASENCIO MD
--- NOTE | 2020-04-30 21:45 | ED.DCSUM_ITS ---
History of Present Illness Chief Complaint: Substance Abuse Informant: Patient Onset: Today Narrative: Patient is a 35-year-old female with history of chronic pain, and pain management, presenting with concern for medication reaction. Patient is chronically on Suboxone, BuSpar and Celexa. She found Contrave later on her house and decided take it at 6 PM. She cannot tell me exactly why. About an hour later she started to have spasms, shaking chills, nausea and diarrhea. She states she never had any like this before. She is concerned it is from the medication she took. She denies any other medications or drug use. She denies any difficulty breathing or chest pain. States she felt well earlier today. Past Medical History - Allergies and Home Meds Allergies/Adverse Reactions: Allergies No Known Allergies Allergy (Verified 04/30/20 21:19) Primary Care Physician: Ann Marie Jeff PHD INTERNSHIP, PHD INTERNSHIP-C [Primary Care Provider] - Past Medical History: - - Anxiety, hypertension, sciatica Surgical History: no surgical history Smoking Status: Current some day smoker Review of Systems General: Reports: Sweats. Denies: Chills, Fever Eyes: Denies: Visual changes - bilaterally, Diplopia ENT: Denies: Rhinorrhea, Sore throat Cardiovascular: Denies: Chest pain, Palpitations Respiratory: Denies: Dyspnea, Cough, Dyspnea on exertion Gastrointestinal: Reports: Nausea, Diarrhea. Denies: Abdominal pain, Vomiting, Melena, Hematochezia Genitourinary: Denies: Dysuria, Hematuria, Frequency Musculoskeletal: Reports: - - Spasms. Denies: Back pain, Extremity Pain Skin: Denies: Rash, Wounds Neurological: Denies: Headache, Weakness, Numbness Physical Exam Vital Signs/Narrative: Vital Signs Temp Pulse Resp BP Pulse Ox 04/30/20 21:16 97.4 F L 114 H 16 177/79 H 98 Inital Vital Signs reviewed: Yes General: Well nourished, Well developed, No Acute Distress Head: Normocephalic, Atraumatic Eyes: Perrl, EOMI, - - Bilateral tonsil fatigue nystagmus ENT: Moist mucous membranes, No rhinorrhea Neck: Supple, Nontender, No JVD Cardiovascular: Regular rate, Regular rhythm, No murmurs Respiratory: No distress, CTA bilaterally, Chest nontender Abdomen: Soft, Nontender, Nondistended, Normal bowel sounds Back: Nontender, Normal Inspection Extremities: Nontender, No edema Skin: Normal color, No rash Neurological: Alert, Oriented x3, Cranial nerves II-XII grossly intact, Normal Strength, Normal Sensation, - - Intermittent whole body spasms every 30 seconds or so. Tremor noted. No seizure-like activity Psychological: Normal affect, Normal Mood, Agitated Diagnostic/Tx/Re-eval Laboratory Data 04/30/20 04/30/20 04/30/20 21:50 21:50 21:50 WBC 14.3 H RBC 4.42 Hgb 12.4 Hct 37.7 MCV 85.3 MCH 28.1 MCHC 32.9 RDW Std Deviation 44.1 H RDW Coeff of Ellie 14.2 Plt Count 281 MPV 9.2 Immature Gran % (Auto) 0.600 Neut % (Auto) 80.6 H Lymph % (Auto) 12.8 L [place] % (Auto) 4.8 Eos % (Auto) 1.0 Baso % (Auto) 0.2 Absolute Neuts (auto) 11.5 H Absolute Lymphs (auto) 1.83 Nucleated RBC % 0 Sodium 137 Potassium 3.5 Chloride 109 H Carbon Dioxide 21.0 Anion Gap 7 BUN 13 Creatinine 0.70 Estim Creat Clear Calc 106.01 Est GFR (MDRD) Af Amer 123 Est GFR (MDRD) Non-Af 102 BUN/Creatinine Ratio 18.5 Glucose 105 Calcium 8.3 L Total Creatine Kinase 30 - Rhythm Strip Rhythm Strip: Sinus Rhythm Rate: 83 Ectopy: None - EKG Initial EKG Interpretation: Sinus Rhythm, - - Normal sinus rhythm at a rate of 83 Normal axis Normal intervals Normal ST segments - Medical Decision Making Patient is evaluated for muscle twitching, spasms as well as nausea and diarrhea and sweats after taking Contrave. Patient is chronically on Suboxone. In route patient was given a dose of Narcan via EMS however I am not entirely sure why as she was AOx3, protecting her airway and not somnolent. I suspect patient is either having an extrapyramidal reaction versus acute withdrawal. Patient is given a 2 x 25 mg dose of IV Benadryl with some improvement. She is then given a dose of IV Ativan. On reevaluation she now states her legs are sore but otherwise she is feeling much better. Her spasms and leg movements have resolved. Patient CPK is normal. Lab work is largely unremarkable as well as her EKG. Patient is a mild leukocytosis of 14.3 but I suspect this is reactive.patient has a normal neurologic exam after medication. I do not think the spasms are chorea. patient was also given a dose of Zofran in the emergency room. As needed. She is given return precautions. Hopefully once the naloxone is out of her system she will not have any further withdrawal symptoms. Patient is instructed to not take any more Contrave. Instructed to follow-up with her primary care doctor/pain management doctor ED Disposition - Plan for ED Patient: Disposition: Home or Assisted Living Diagnosis: Medication reaction Referrals: Ann Marie Jeff PHD INTERNSHIP, PHD INTERNSHIP-C [Primary Care Provider] - Additional Instructions: Do not take any more Contrave. Only take medications that you are prescribed.
[2020-04-30] MEDS: Ondansetron 4 MG/2 ML Vial IV (21:53)
[2020-04-30] MEDS: DiphenhydrAMINE 50 MG/ML Syringe 25 MG IV ×2 (21:55→22:23)
[2020-04-30 22:12] LABS: Absolute Lymphocyte Count 1.83 X10^3/uL (0.83-4.51); Absolute Neutrophil Count 11.5 X10^3/uL (2.0-7.7); Basophil# 0.03 X10^3/uL; Basophil% 0.2 % (0-1); Eosinophil# 0.14 X10^3/uL; Hematocrit 37.7 % (37-47); Hemoglobin 12.4 g/dL (12.0-15.0); Lymphocyte # 1.83 X10^3/ul (4.0); Lymphocyte % 12.8 % (19-41); Mean Corp Hgb Conc 32.9 g/dL (32-36); Mean Corpuscular Hgb 28.1 pg (27.0-32.0); Mean Corpuscular Volume 85.3 fL (81-99); Mean Platelet Vol. 9.2 fl (6.2-12.0); Monocyte# 0.68 X10^3/uL; Monocyte% 4.8 % (0-10); NRBC Flagged by Analyzer 0 % (0-5); Neutrophil # 11.54 X10^3/uL (2.7-7.7); Neutrophil % 80.6 % (47-70); Platelet Count 281 K/mm3 (150-450); RBC Distribution Width CV 14.2 % (11.6-14.6); RBC Distribution Width SD 44.1 fl (35.1-43.9); Red Blood Count 4.42 M/mm3 (4.2-5.4); White Blood Count 14.3 K/mm3 (4.4-11.0)
[2020-04-30 22:30] LABS: Anion Gap 7 (5-15); BUN 13 mg/dL (7-18); BUN/Creat Ratio 18.5 RATIO (10-20); Calcium,Total 8.3 mg/dL (8.5-10.1); Chloride 109 mmol/L (98-107); EST Glomerular Filtration Rate 102 mL/min (>60); Est Glom Filt Rate - Afr Amer 123 mL/min (>60); Estimated Creatinine Clearance 106.01 ml/min; Glucose 105 mg/dL (74-106); Potassium 3.5 mmol/L (3.5-5.1); Sodium Level 137 mmol/L (136-145)
[2020-04-30 22:31] LABS: CPK Total, Creatine Kinase 30 U/L (26-192)
[2020-04-30] MEDS: LORazepam 2 MG/ML Syringe 1 MG IV (22:56)
[2020-04-30 23:46] VITALS: BP 131/88; PULSE 90; RESP 16; O2SAT 96
== END 2020-05-01 00:04 | disposition home or self-care (01) ==
PROVIDERS: Emergency Provider Emergency Medicine; PCP Nurse Practitioner
DX: R25.2 Cramp and spasm (principal); R11.0 Nausea; R19.7 Diarrhea, unspecified; T50.995A Adverse effect of other drugs, medicaments and biological substances, initial encounter; Y92.009 Unspecified place in unspecified non-institutional (private) residence as the place of occurrence of the external cause; I10 Essential (primary) hypertension; F41.9 Anxiety disorder, unspecified; F17.200 Nicotine dependence, unspecified, uncomplicated
CPT/HCPCS: 80048; 82550; 85025; 93005; 96374; 96375; 99285; A4216; J2405

== ENCOUNTER → 2020-05-14 17:11 | Outpatient (CLI) | payer OTHER, SELFPAY ==
[2020-04-30 21:16] VITALS: BMI 37.1
[2020-05-14 18:15] LABS: Amphetamine Urine VISTA NEGATIVE (<1000 ng/mL); Barbiturate Urine VISTA NEGATIVE (< 200 ng/mL); Benzodiazepine Urine VISTA NEGATIVE (< 200 ng/mL); Cocaine Urine VISTA NEGATIVE (< 300 ng/mL); Ecstacy Urine VISTA NEGATIVE (< 500 ng/mL); Methadone Urine VISTA NEGATIVE (< 300 ng/mL); PCP Urine VISTA NEGATIVE (< 25 ng/mL); THC Urine VISTA NEGATIVE (< 50 ng/mL); Vista UDS pH Range 6
== END ==
PROVIDERS: PCP Nurse Practitioner; Referring Provider Anesthesiology Pain Medicine; Visit Provider Anesthesiology Pain Medicine
DX: F11.20 Opioid dependence, uncomplicated (principal)
CPT/HCPCS: 80307

== ENCOUNTER 2020-05-26 14:17 | Emergency (ER) | payer OTHER, SELFPAY ==
[2020-05-26 14:18] VITALS: BP 145/102; PULSE 94; RESP 16; TEMP 36; O2SAT 97; BMI 34.7
--- NOTE | 2020-05-26 14:51 | CT_ITS ---
STUDY: CT ABDOMEN AND PELVIS WITHOUT CONTRAST REASON FOR EXAM: Female, 35 years old. Pain -- right flank pain RADIATION DOSAGE (If Supplied By Facility): CTDIvol = ( 18.72 ) mGy, DLP = ( 966.68 ) mGycm TECHNIQUE: Transaxial images were obtained from the dome of the diaphragm to the symphysis pubis without oral contrast, and without intravenous contrast. Sagittal and coronal images were reconstructed. Individualized dose optimization techniques were used for this CT. COMPARISON: None. FINDINGS: The visualized lung bases are unremarkable. The visualized portions of the heart are within normal limits. Normal liver. Normal gallbladder and extrahepatic biliary system. Normal spleen. Normal pancreas. Normal bilateral adrenal glands. Normal right kidney. Normal left kidney. Normal visualized stomach. Normal small intestine. Normal colon. The appendix is visualized and appears normal. Normal abdominal aorta. Normal inferior vena cava. Normal retroperitoneum. Normal urinary bladder. Intrauterine device within the uterus. Normal abdominal wall. Healed fracture the right inferior pubic ramus. CT/Abdomen/Pelvis without Cont IMPRESSION: Normal unenhanced CT of the abdomen and pelvis. Electronically Signed: Andrew Vick MD at 15:57 EDT Tel , Service support ,
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
[2020-05-26] MEDS: Ketorolac 30 MG/ML Syringe IV (14:56)
[2020-05-26 15:10] LABS: Absolute Lymphocyte Count 2.81 X10^3/uL (0.83-4.51); Absolute Neutrophil Count 6.3 X10^3/uL (2.0-7.7); Basophil# 0.02 X10^3/uL; Basophil% 0.2 % (0-1); Eosinophil# 0.15 X10^3/uL; Eosinophils% 1.5 % (0-5); Hematocrit 37.8 % (37-47); Hemoglobin 12.2 g/dL (12.0-15.0); Lymphocyte # 2.81 X10^3/ul (0.83-4.51); Lymphocyte % 28.2 % (19-41); Mean Corp Hgb Conc 32.3 g/dL (32-36); Mean Corpuscular Hgb 27.7 pg (27.0-32.0); Mean Corpuscular Volume 85.9 fL (81-99); Mean Platelet Vol. 8.8 fl (6.2-12.0); Monocyte# 0.67 X10^3/uL; Monocyte% 6.7 % (0-10); NRBC Flagged by Analyzer 0 % (0-5); Neutrophil # 6.25 X10^3/uL (2.7-7.7); Neutrophil % 62.9 % (47-70); Platelet Count 305 K/mm3 (150-450); RBC Distribution Width CV 13.8 % (11.6-14.6); RBC Distribution Width SD 43.5 fl (35.1-43.9)
[2020-05-26 15:16] LABS: Internal QC Validated? YES +Cl - CLEAR BKGD; Pregnancy, Serum, hCG Quali. NEGATIVE Negative
[2020-05-26 15:17] LABS: Mucous, Urine 0 SEEN /hpf (<or=2+); Red Blood Cells-Urine 0 SEEN /hpf (0-5)
[2020-05-26 15:22] LABS: Color, Urine Yellow (Yellow); Glucose, Dipstick Normal (Normal); Ketone-Dipstick Negative (Negative); Leukocyte Esterase-Dipstick 25 /ul (Negative); Nitrite-Dipstick Negative (Negative); Occult Blood-Urine Negative /ul (Negative); Protein-Dipstick Negative (Negative); Specific Gravity, Urine 1.015 (1.002-1.030); Urine Bilirubin Dipstick Negative (Negative); Urine Clarity Clear (Clear); Urine Urobilinogen Normal (Normal)
[2020-05-26 15:26] LABS: ALB/GLOB Ratio 0.8 RATIO (0.9-2.4); AST(SGOT) 17 U/L (15-37); Alanine Aminotransfer ALT/SGPT 33 U/L (13-56); Albumin, Serum 3.5 g/dL (3.2-5.0); Alkaline Phosphatase 113 U/L (45-117); Anion Gap 8 (5-15); BUN 11 mg/dL (7-18); BUN/Creat Ratio 12.1 RATIO (10-20); Calcium,Total 8.8 mg/dL (8.5-10.1); Chloride 101 mmol/L (98-107); Creatinine, Serum 0.91 mg/dL (0.55-1.02); EST Glomerular Filtration Rate 75 mL/min (>60); Est Glom Filt Rate - Afr Amer 91 mL/min (>60); Estimated Creatinine Clearance 81.55 ml/min; Globulin 4.2 g/dL (2.2-4.2); Glucose 86 mg/dL (74-106); Potassium 3.1 mmol/L (3.5-5.1); Protein, Total 7.7 g/dL (6.4-8.2); Sodium Level 136 mmol/L (136-145)
[2020-05-26 15:36] LABS: Bacteria 1+ /hpf (None Seen); Squamous Epithelial Cells - UA 0-5 SEEN /hpf (5-10); White Blood Cells 0-5 SEEN /hpf (0-5)
[2020-05-26 16:05] VITALS: BP 114/79; PULSE 88; RESP 16; TEMP 36.7; O2SAT 98
--- NOTE | 2020-05-26 16:06 | DCINST.ED_ITS ---
ED Disposition - Plan for ED Patient: Disposition: Home or Assisted Living Instructions: ED Flank Pain, Uncertain Cause Referrals: Ann Marie Jeff SEASONAL GREENERY BUNDLER, SEASONAL [employer]ENER[employer] BUNDLER-C [Primary Care Provider] - 3-5 Days if not improving Additional Instructions: No specific cause for your pain today it may be musculoskeletal. Motrin and Tylenol for pain. Follow-up with your primary care physician if not improving.
== END 2020-05-26 16:38 | disposition home or self-care (01) ==
PROVIDERS: Emergency Provider Emergency Medicine; PCP Nurse Practitioner
DX: R10.9 Unspecified abdominal pain (principal); G89.29 Other chronic pain; F32.9 Major depressive disorder, single episode, unspecified; F41.9 Anxiety disorder, unspecified; Z79.899 Other long term (current) drug therapy
CPT/HCPCS: 74176; 80053; 81001; 84703; 85025; 96374; 99283

== ENCOUNTER → 2020-06-15 17:05 | Outpatient (CLI) | payer OTHER, SELFPAY ==
[2020-05-26 14:18] VITALS: BMI 34.7
[2020-06-15 18:50] LABS: Amphetamine Urine VISTA NEGATIVE (<1000 ng/mL); Barbiturate Urine VISTA NEGATIVE (< 200 ng/mL); Benzodiazepine Urine VISTA NEGATIVE (< 200 ng/mL); Cocaine Urine VISTA NEGATIVE (< 300 ng/mL); Ecstacy Urine VISTA NEGATIVE (< 500 ng/mL); Methadone Urine VISTA NEGATIVE (< 300 ng/mL); PCP Urine VISTA NEGATIVE (< 25 ng/mL); THC Urine VISTA NEGATIVE (< 50 ng/mL); Vista UDS pH Range 6
[2020-06-15 19:21] LABS: BUP Internal Control LINE = VALID (VALID)
[2020-06-15 19:22] LABS: Buprenorphine Drug Screen Positive (<10 ng/mL)
== END ==
LOC: LAB.FUTURE 17:05
PROVIDERS: PCP Nurse Practitioner; Visit Provider Anesthesiology Pain Medicine
DX: F11.20 Opioid dependence, uncomplicated (principal)
CPT/HCPCS: 80307

== ENCOUNTER 2020-10-09 16:16 | Emergency (ER) | payer SELFPAY ==
[2020-10-09 16:17] VITALS: BP 149/100; PULSE 88; RESP 14; TEMP 36.4; O2SAT 95; BMI 37.2
--- NOTE | 2020-10-09 16:31 | EDS_ITS ---
HPI HPI - GI History of Present Illness Chief Complaint: Abd Pain Informant: patient Abdominal Pain/Flank Pain Onset: Days Context: Sudden Onset Timing: Intermittent and Waxes and wanes Quality: Aching and Cramping Location: RUQ Current Severity: Mild Maximum Severity: Severe Worsened by: Food (Specifically greasy and fried) Relieved by: Nothing Nausea/Vomiting/Emesis GI Symptom: Positive for Nausea and Vomiting Onset: Days Diarrhea/Melena/Hematochezia GI Symptom: Negative for Diarrhea, Melena and Hematochezia Associated Symptoms Associated Symptoms: Negative for Dysuria, Frequency and Hematuria Narrative Narrative: Patient is a 35-year-old female who presents with right upper quadrant pain that radiates to her back associate with nausea vomiting. It is exacerbated with greasy and fried food. She has multiple family was with cholelithiasis/cholecystitis. She was sent in by her primary care provider, Ann Marie Damon. She denies fever, chills night sweats. She denies respiratory cardiac symptoms. She denies urologic symptoms. Prior similar symptoms: Yes (It has never been worked up) Recent Illness/Hospitalization: No PFSH PFSH Home Medications cyclobenzaprine 10 mg PO TID PRN #20 tab 08/11/18 [Rx Last Taken Unknown] gabapentin 600 mg PO TIDCM 08/11/18 [History Last Taken 08/11/18] buspirone 15 mg PO TID #90 tab 06/10/19 [Rx Last Taken Unknown] citalopram 40 mg PO DAILY #30 tab 06/10/19 [Rx Last Taken Unknown] buprenorphine-naloxone 1 each PO DAILY 04/30/20 [History Last Taken Unknown] sulfamethoxazole-trimethoprim 1 each PO BID 05/26/20 [History Last Taken Unknown] Allergy/AdvReac Type Severity Reaction Status Date / Time No Known Allergies Allergy Verified 10/09/20 16:17 no surgical history Social History (Updated 10/09/20 @ 16:[address] Immanuel Teresa MD) household members: other details: single Smoking Status: Never smoker alcohol intake: current alcohol intake frequency: holidays/special occasions only substance use type: does not use ROS ROS ED Constitutional Constitutional ED: Denies fever(s), subjective or sweats ENT ENT ED: Denies ear pain or rhinorrhea Cardiovascular Cardiovascular: Denies chest pain or palpitations Respiratory/Chest Respiratory/Chest: Denies cough, dyspnea or dyspnea on exertion Gastrointestinal Gastrointestinal: Reports abdominal pain, nausea and vomiting; Denies constipation, diarrhea or melena Genitourinary Genitourinary ED: Denies dysuria, hematuria or urinary frequency Musculoskeletal Musculoskeletal: Reports back pain; Denies arthralgias, myalgias or neck pain Integumentary Denies rash Neurologic Neurologic: Denies headache(s), paresthesias or weakness Hematologic/Lymphatic Hematologic/Lymphatic: Denies easy bleeding or easy bruising EXAM Physical Exam Const Vital Signs: 10/09/20 16:17 Temperature 97.6 F L Temperature Source Temporal Pulse Rate 88 Respiratory Rate 14 Blood Pressure 149/100 H Blood Pressure Mean 116 Pulse Ox 95 Oxygen Delivery Method Room Air Positive well nourished, well developed and obese General Appearance ED: well developed and NAD Nutritional Appearance: obese HEENT Reports moist mucous membranes HEENT Narrative: Nares patent. Ears normal. normocephalic and atraumatic Eyes PERRL and EOMs intact bilaterally General Eye ED: Negative for pale conjunctiva or scleral icterus Neck no lymphadenopathy, supple and no JVD Resp normal respiratory effort and clear to auscultation bilaterally Cardio regular rate, regular rhythm, S1 normal heart sound, S2 normal heart sound and no murmurs GI non-distended and no masses; Negative for non-tender Auscultation: normoactive bowel sounds Palpation: soft and tender RUQ and Levi's sign Back/Spine no CVA tenderness Cervical Spine: Negative for cervical spine tenderness Thoracic Spine / Upper Back: Negative for thoracic spinal tenderness Lumbar Spine / Lower Back: Negative for lumbar spinal tenderness Extremity full ROM General Extremety ED: Negative for edema or tenderness General Extremity: Negative for edema Neuro CN's II-XII intact bilaterally and moves all extremities Sensorium / Orientation: alert, oriented to person, oriented to place and oriented to time Psych mental status grossly normal and thought process normal Skin no wounds Lesions: no lesions Rashes: no rashes MDM MDM MDM Narrative Medical decision making narrative: Suspect patient has biliary colic, cholecystitis versus cholecystitis. Patient was informed that she had chicken nuggets at approximately 1:00 ultrasound would be of no value. That would have to wait 8 hours or an ultrasound to be obtained. Blood work was obtained assess white count, liver enzymes and lipase to evaluate for acute infla mmation/gallstone pancreatitis. Patient was medicated with Zofran and Toradol. Lab Data Attestation: I reviewed the patient's lab results. Lab results narrative: White count is elevated. She has had prior elevated white counts. Liver enzymes and lipase are normal. Plan is outpatient ultrasound since patient had chicken McNuggets at 1300 Labs: Laboratory Results - last 24 hr 10/09/20 10/09/20 16:45 16:45 WBC 11.9 H RBC 4.50 Hgb 12.1 Hct 38.3 MCV 85.1 MCH 26.9 L MCHC 31.6 L RDW Std Deviation 44.7 H RDW Coeff of Ellie 14.3 Plt Count 273 MPV 9.0 Immature Gran % (Auto) 0.400 Neut % (Auto) 73.9 H Lymph % (Auto) 18.5 L [place] % (Auto) 5.8 Eos % (Auto) 1.2 Baso % (Auto) 0.2 Absolute Neuts (auto) 8.8 H Absolute Lymphs (auto) 2.21 Nucleated RBC % 0 Total Bilirubin 0.20 Direct Bilirubin 0.06 AST 9 L ALT 20 Alkaline Phosphatase 86 Total Protein 7.3 Albumin 3.3 Globulin 4.0 Lipase 78 Discharge Plan Triage Chief Complaint: Abd Pain Other Complaint: Nausea/Vomiting ED Provider: Vera Teresao Dx/Rx/DC Orders Clinical Impression: Intermittent right upper quadrant abdominal pain, Biliary colic symptom Instructions: What Are Gallstones Prescriptions: No Action gabapentin 600 MG tablet 600 mg PO TIDCM RF: 0 cyclobenzaprine 10 MG tablet 10 mg PO TID PRN (Reason: Muscle Spasm) Qty: 20 RF: 0 buspirone 15 MG tablet 15 mg PO TID Qty: 90 RF: 0 citalopram 40 MG tablet 40 mg PO DAILY Qty: 30 RF: 0 buprenorphine-naloxone 1 EACH film 1 each PO DAILY RF: 0 sulfamethoxazole-trimethoprim 1 EACH tablet 1 each PO BID RF: 0 Primary Care Provider: Ann Marie Jeff NP Referrals: Ann Marie Jeff ASSOCIATE SOFTWARE APPLICATION ENGINEER, ASSOCIATE SOFTWARE APPLICATION ENGINEER-C [Primary Care Provider] - 1 Week Activity Restrictions/Additional Instructions: You will need to call Department of imaging to schedule outpatient ultrasound of your gallbladder You should not eat anything that is fatty, greasy or rich Disposition Disposition: Home, Self Care
[2020-10-09] MEDS: Ketorolac 15 MG/ML Vial IV (16:44)
[2020-10-09] MEDS: Ondansetron 4 MG/2 ML Vial IV (16:44)
[2020-10-09 16:52] LABS: Absolute Lymphocyte Count 2.21 X10^3/uL (0.83-4.51); Absolute Neutrophil Count 8.8 X10^3/uL (2.0-7.7); Basophil# 0.02 X10^3/uL; Basophil% 0.2 % (0-1); Eosinophil# 0.14 X10^3/uL; Eosinophils% 1.2 % (0-5); Hematocrit 38.3 % (37-47); Hemoglobin 12.1 g/dL (12.0-15.0); Lymphocyte # 2.21 X10^3/ul (0.83-4.51); Lymphocyte % 18.5 % (19-41); Mean Corp Hgb Conc 31.6 g/dL (32-36); Mean Corpuscular Hgb 26.9 pg (27.0-32.0); Mean Corpuscular Volume 85.1 fL (81-99); Monocyte# 0.69 X10^3/uL; Monocyte% 5.8 % (0-10); NRBC Flagged by Analyzer 0 % (0-5); Neutrophil # 8.81 X10^3/uL (2.7-7.7); Neutrophil % 73.9 % (47-70); Platelet Count 273 K/mm3 (150-450); RBC Distribution Width CV 14.3 % (11.6-14.6); RBC Distribution Width SD 44.7 fl (35.1-43.9); White Blood Count 11.9 K/mm3 (4.4-11.0)
[2020-10-09 17:13] LABS: AST(SGOT) 9 U/L (15-37); Alanine Aminotransfer ALT/SGPT 20 U/L (13-56); Albumin, Serum 3.3 g/dL (3.2-5.0); Alkaline Phosphatase 86 U/L (45-117); Bilirubin, Direct 0.06 mg/dL (0.00-0.30); Lipase 78 U/L (73-393); Protein, Total 7.3 g/dL (6.4-8.2)
[2020-10-09 17:57] VITALS: BP 155/95
== END 2020-10-09 17:58 | disposition home or self-care (01) ==
PROVIDERS: Emergency Provider Emergency Medicine; PCP Nurse Practitioner
DX: R10.11 Right upper quadrant pain (principal); E66.9 Obesity, unspecified
CPT/HCPCS: 80076; 83690; 85025; 96374; 96375; 99283; A4216; J2405

== ENCOUNTER 2021-05-30 19:54 | Emergency (ER) | payer BC, SELFPAY ==
[2021-05-30 19:54] VITALS: BP 150/100; PULSE 114; RESP 16; TEMP 36.4; O2SAT 97; BMI 34.7
--- NOTE | 2021-05-30 20:11 | EX.ED.VIS.UR ---
HPI HPI - URI History of Present Illness Chief Complaint: Sore Throat Detail of Chief Complaint: Sore throat that started 2 days ago Informant: patient Narrative Narrative: Patient presents with sore throat that started 2 days ago. Patient states she gets strep frequently. Patient states her and currently being treated for strep and is on antibiotics. Patient denies any cough. She complains of painful swallowing. She denies fevers. ROS ROS ED Constitutional Constitutional ED: Reports systems reviewed and no addt'l complaints, except as documented; Denies body ache(s), change in weight or chills Eyes Eyes: Denies acute decrease in peripheral vision, change in vision, double vision or loss of vision ENT ENT ED: Reports none and sore throat; Denies ear pain, lip swelling, loss taste/smell, neck pain or otalgia Cardiovascular Cardiovascular: Reports none; Denies abdominal pain, chest pain with activity, leg edema, lightheadedness, palpitations, rapid heart rate or syncope Respiratory/Chest Respiratory/Chest: Reports none; Denies change in mental status, dry cough, dyspnea, hemoptysis, shortness of breath at rest or shortness of breath with exertion Gastrointestinal Gastrointestinal: Reports none; Denies abdominal pain, change in stool character, diarrhea, hematemesis, hematochezia, melena, rectal bleeding or vomiting Genitourinary Genitourinary ED: Reports none; Denies abdominal discomfort, anuria, dysuria, genital pain or polyuria Musculoskeletal Musculoskeletal: Reports none; Denies arthralgias, back pain, difficulty walking, extremity pain, muscle weakness or myalgias Integumentary Reports none; Denies abscess or rash Neurologic Neurologic: Reports none; Denies abnormal gait, confusion, focal weakness, frequent falls, headache(s), loss of vision, numbness, paresthesias, radicular pain, vertigo or weakness Psychiatric Psychiatric: Reports systems reviewed and no addt'l complaints, except as documented and none; Denies behavioral changes, confusion, difficulty concentrating, hallucinations, suicidal ideation, tactile hallucinations or visual hallucinations Endocrine Endocrinology: Denies none, cold intolerance, excessive sweating, fatigue or heat intolerance Hematologic/Lymphatic Hematologic/Lymphatic: Reports none; Denies anemia, easy bleeding or easy bruising Allergic/Immunologic Allergic/Immunologic ED: Denies as per HPI, none, lip swelling, mouth swelling, throat swelling, tongue swelling or hives PFSH PFSH Home Medications cyclobenzaprine 10 mg PO TID PRN #20 tab 08/11/18 [Rx Last Taken Unknown] gabapentin 600 mg PO TIDCM 08/11/18 [History Last Taken 08/11/18] buspirone 15 mg PO TID #90 tab 06/10/19 [Rx Last Taken Unknown] citalopram 40 mg PO DAILY #30 tab 06/10/19 [Rx Last Taken Unknown] buprenorphine-naloxone 1 each PO DAILY 04/30/20 [History Last Taken Unknown] sulfamethoxazole-trimethoprim 1 each PO BID 05/26/20 [History Last Taken Unknown] amoxicillin 500 mg PO TID #30 tab 05/30/21 [Rx Last Taken Unknown] hydrocodone-acetaminophen 1 tab PO Q4H PRN PRN 2 Days #10 tablet 05/30/21 [Rx Last Taken Unknown] Allergy/AdvReac Type Severity Reaction Status Date / Time No Known Allergies Allergy Verified 05/30/21 19:56 Social History (Updated 10/09/20 @ 16:[address] Immanuel Teresa MD) household members: other details: single Smoking Status: Never smoker alcohol intake: current alcohol intake frequency: holidays/special occasions only substance use type: does not use EXAM Physical Exam Const Vital Signs: 05/30/21 19:54 Temperature 97.6 F L Temperature Source Temporal Pulse Rate 114 H Respiratory Rate 16 Blood Pressure 150/100 H Blood Pressure Mean 116 Pulse Ox 97 Oxygen Delivery Method Room Air Positive well nourished and well developed General Appearance ED: well developed and NAD HEENT Reports TM's clear and moist mucous membranes HEENT Narrative: Patient has tonsils with +2 with exudates noted. Uvula is in midline. No trismus. No peritonsillar fullness or abscess noted. Patient does have anterior cervical lymphadenopathy. normocephalic and atraumatic; Negative for trauma or tenderness Tympanic Membrane ED: Yes TM's clear Eyes PERRL and EOMs intact bilaterally General Eye ED: Negative for pale conjunctiva or scleral icterus Neck no lymphadenopathy, supple and no JVD General: Negative for tenderness Chest Wall inspection of chest normal and palpation of chest normal Chest: Negative for tenderness Resp normal respiratory effort and clear to auscultation bilaterally Effort and Inspection: Negative for respiratory distress or pain with movement Auscultation: Negative for rhonchi, wheezes or diminished lung sounds Cardio regular rate, regular rhythm, S1 normal heart sound, S2 normal heart sound and no murmurs Peripheral Pulses: pulses 2+ throughout GI normal to inspection, nondistended, normoactive bowel sounds, soft to palpation, non-tender, non-distended and no masses Back/Spine no CVA tenderness and no thoracic nor lumbar tenderness Extremity normal to inspection General Extremety ED: Negative for edema General Extremity: Negative for edema Neuro oriented x3, CN's II-XII intact bilaterally, no sensory deficits noted and gait normal Sensorium / Orientation: awake, alert, oriented to person, oriented to place and oriented to time Motor Exam: strength 5/5 throughout and strength abnormal Psych mental status grossly normal Skin no rashes or lesions noted and no wounds MDM MDM MDM Narrative Medical decision making narrative: Patient was given Toradol 60 mg IM as well as dexamethasone and a dose of amoxicillin. She has a Centor score of 3 out of 4 and will be treated with amoxicillin and a few [place] for pain. She is advised to salt water gargles. Patient to follow-up with her primary care physician 3 to 5 days. Patient to return if difficulty swallowing or condition should worsen anyway. Discharge Plan Triage Chief Complaint: Sore Throat ED Provider: Katt Fregoso Dx/Rx/DC Orders Clinical Impression: Pharyngitis, acute Instructions: ED Pharyngitis, Report Pending Prescriptions: New hydrocodone-acetaminophen [hydrocodone-acetaminophen] 1 TABLET tablet 1 tab PO Q4H PRN PRN (Reason: Pain) 2 Days Qty: 10 RF: 0 amoxicillin 500 MG tablet 500 mg PO TID Qty: 30 RF: 0 No Action gabapentin 600 MG tablet 600 mg PO TIDCM RF: 0 cyclobenzaprine 10 MG tablet 10 mg PO TID PRN (Reason: Muscle Spasm) Qty: 20 RF: 0 buspirone 15 MG tablet 15 mg PO TID Qty: 90 RF: 0 citalopram 40 MG tablet 40 mg PO DAILY Qty: 30 RF: 0 buprenorphine-naloxone 1 EACH film 1 each PO DAILY RF: 0 sulfamethoxazole-trimethoprim 1 EACH tablet 1 each PO BID RF: 0 Primary Care Provider: Ann Marie Jeff NP Referrals: Ann Marie Jeff STREETSWEEPER OPERATOR, STREETSWEEPER OPERATOR-C [Primary Care Provider] - 3-5 Days Disposition Disposition: Home, Self Care
[2021-05-30] MEDS: Ketorolac 60 MG/2 ML Vial IM (20:21)
[2021-05-30] MEDS: Morphine 4 MG/ML Syringe IM (20:29)
[2021-05-30] MEDS: dexAMETHasone 4 MG Tablet 10 MG PO (20:31)
[2021-05-30] MEDS: AMOXICILLIN 500 MG CAPSULE PO (20:31)
[2021-05-30 20:57] VITALS: RESP 16; O2SAT 97
--- NOTE | 2021-05-30 20:58 | ED.RN ---
pt tearful and said that she is no better,made her aware that it will take some time for the medication to work.pt feels she is going to have a panic attack, oh just forget it,I'll go some where else. pt took discharge papers.pt not receptive to education
== END 2021-05-30 21:00 | disposition home or self-care (01) ==
LOC: ED 20:30
PROVIDERS: Emergency Provider Emergency Medicine; Visit Provider Emergency Medicine
DX: J02.9 Acute pharyngitis, unspecified (principal)
CPT/HCPCS: 96372; 99283